=== PATIENT | female | born 1995 | race African-American/Black ===

== ENCOUNTER 2021-08-02 06:13 | Emergency (ER) | payer MEDICAID ==
[~2021-08-02] VITALS: Ht 157.5 cm; Wt 51.4 kg
[2021-08-02] MEDS ORDERED: IBUPROFEN 600 MG TABLET PO ONE (06:45)
[2021-08-02 06:54] VITALS: BP 119/68
[2021-08-02 07:21] LABS: COVID AG,FIA SOURCE NASOPHARYNGEAL
[2021-08-02] MEDS ORDERED: BENZ-70 PO (07:45)
[2021-08-02 07:59] LABS: INFLUENZA TYPE A NEGATIVE FOR TYPE A (NEGATIVE); INFLUENZA TYPE B NEGATIVE FOR TYPE B (NEGATIVE)
== END 2021-08-02 07:55 | disposition home or self-care (01) ==
LOC: EMS 06:18
DX: R05.9 Cough, unspecified (principal); Z20.822 Contact with and (suspected) exposure to COVID-19; Z88.8 Allergy status to other drugs, medicaments and biological substances
CPT/HCPCS: 71045; 87804; 99284